=== PATIENT | male | born 1975 | race Caucasian/White ===

== ENCOUNTER 2018-05-01 21:44 | Emergency (ER) | payer OTHER ==
[~2018-05-01] VITALS: Ht 175.3 cm; Wt 108.9 kg
[2018-05-01 22:00] LABS: ABSOLUTE BASOPHILS 0.2 thou/uL (0.0-0.2); ABSOLUTE EOSINOPHILS 0.4 thou/uL (0.0-0.7); ABSOLUTE LYMPHOCYTES 2.6 thou/uL (0.8-5.3); ABSOLUTE MONOCYTES 0.8 thou/uL (0.0-1.2); ABSOLUTE NEUTROPHILS 7.8 thou/uL (1.6-8.1); BASOPHILS 1.3 %; EOSINOPHILS 3.8 %; HEMATOCRIT 42.2 % (42.0-52.0); LYMPHOCYTES 21.7 %; MCH 26.9 pg (26.0-34.0); MCHC 33.1 g/dL (28.0-37.0); MCV 81.4 fL (80.0-100.0); MONOCYTES 7.1 %; MPV 7.8 fl. (7.2-11.1); NUCLEATED RBCS 0 /100WBC; PLATELET COUNT* 261 thou/uL (150-400); POLYS 66.1 %; RBC 5.18 mil/uL (4.50-6.00); RDW-CV 14.2 % (10.5-14.5); WBC 11.8 thou/uL (4.0-11.0)
[2018-05-01 22:10] LABS: ANION GAP 7 mmol/L (7-16); BUN 11 mg/dL (7-18); CHLORIDE 103 mmol/L (98-107); CO2 27 mmol/L (21-32); CREATININE 0.9 mg/dL (0.6-1.3); GLUCOSE 130 mg/dL (70-99); POTASSIUM 3.4 mmol/L (3.5-5.1); SODIUM 137 mmol/L (136-145)
[2018-05-01 22:13] LABS: INR 0.9; PROTIME 9.7 Seconds (9.20-11.50)
[2018-05-01 22:20] LABS: ALBUMIN 3.3 g/dL (3.4-5.0); ALKALINE PHOSPHATASE 75 U/L (46-116); LIPASE 236 U/L (73-393); NT-PRO BRAIN NAT PEPTIDE 9 pg/mL (<300); SGOT 28 U/L (15-37); SGPT 51 U/L (30-65); TOTAL BILIRUBIN 0.3 mg/dL (<0.1-1.0); TOTAL PROTEIN 7.8 g/dL (6.4-8.2); TROPONIN-I LEVEL <0.06 ng/mL (<0.06)
[2018-05-01 22:52] VITALS: BP 146/62
--- NOTE | 2018-05-02 15:38 | EKG ---
[place] [address] ELECTROCARDIOGRAM REPORT Name: TYRELL TONY Room: [facility]#: [id number] Admission: 05/01/18 Attend Phys: Discharge: 05/01/18 Date of : 79 Report #: [id number] THIS REPORT FOR: //name// [facility] ED Test Date: 2018-05-01 Test Time: 21:47:02 Pat Name: TYRELL TONY Department: Room: Gender: M [employer]: : 1975 Requested By: Liana Maza Order Number: [id number] MD: Chele Mckeon Measurements Intervals [place] Rate: 93 P: 6 ND: 139 QRS: 26 QRSD: 98 T: -30 QT: 337 QTc: 420 Interpretive Statements Sinus rhythm Probable left atrial enlargement Borderline T abnormalities, inferior leads Borderline ST elevation, anterior leads Baseline wander in lead(s) II,aVR,V1,V2,V3,V5 No previous ECG available for comparison Electronically Signed On 05-02-2018 15:38:35 TRANSPORTATION ASSISTANT by Chele Mckeon [email or web address] <ELECTRONICALLY SIGNED> By: Chele Mckeon MD, [facility] 05/02/18 1538 Chele Mckeon MD, [facility] /EPI
== END 2018-05-01 22:52 | disposition left against medical advice (07) ==
LOC: M.ERS 21:44
PROVIDERS: Personal Emergency Response Attendant
DX: I20.9 Angina pectoris, unspecified (principal)